=== PATIENT | male | born 1940 | race Caucasian/White ===

== ENCOUNTER → 2017-02-02 | Outpatient (CLI) | payer MEDICARE, BC ==
[~2017-02-02] MED LIST: ACTOS45 MG PO; AMARYL4 M1 PO; GLUCOPHAGE500 MG PO; INVOKAMET 150-1 EACH PO; INVOKAMET 50-51 EACH PO; LEVEMIR FL100 UNIT/1 SUB-Q; NORVASC10 MG PO; NORVASC2.5 MG PO; NOVOLOG FL100 UNIT/1 SUB-Q
== END | disposition disaster alternative care site (69) ==
LOC: GRAD 01-31 07:50
DX: M54.9 Dorsalgia, unspecified (principal); M54.2 Cervicalgia; M47.816 Spondylosis without myelopathy or radiculopathy, lumbar region; M47.812 Spondylosis without myelopathy or radiculopathy, cervical region

== ENCOUNTER → 2017-02-08 | Outpatient (CLI) | payer MEDICARE, BC | END | disposition disaster alternative care site (69) | LOC: LGSMG 15:02 | DX: Z00.00 Encounter for general adult medical examination without abnormal findings (principal); I12.9 Hypertensive chronic kidney disease with stage 1 through stage 4 chronic kidney disease, or unspecified chronic kidney disease; N18.4 Chronic kidney disease, stage 4 (severe); N17.9 Acute kidney failure, unspecified; E11.9 Type 2 diabetes mellitus without complications; R80.9 Proteinuria, unspecified; Z79.899 Other long term (current) drug therapy ==

== ENCOUNTER → 2017-02-09 | Outpatient (CLI) | payer MEDICARE, BC | END | disposition disaster alternative care site (69) | LOC: GOPD 02-08 | PROC: 3E0R33Z Introduction of Anti-inflammatory into Spinal Canal, Percutaneous Approach (ICD-10-PCS; principal; 2017-02-09) | PROC: 3E0R3BZ Introduction of Anesthetic Agent into Spinal Canal, Percutaneous Approach (ICD-10-PCS; 2017-02-09) | DX: M48.06 Spinal stenosis, lumbar region (principal); M79.604 Pain in right leg; M54.5 Low back pain | CPT/HCPCS: J1040 ==